=== PATIENT | male | born 1980 | race Caucasian/White ===

== ENCOUNTER 2018-04-23 13:01 | Emergency (ER) | payer SELFPAY ==
[~2018-04-23] VITALS: Ht 175.3 cm; Wt 80.9 kg
[~2018-04-23 13:01] MED LIST: AMOXICILLIN/PO500 MG PO; LORTAB 5-325 MG1 TAB; NAPROSYN500 MG PO; NO HOME MEDS; ULTRAM50 M1 PO
[2018-04-23] MEDS ORDERED: AMOX/K CLAV875 M1 PO (13:50)
[2018-04-23 13:58] VITALS: BP 151/91
== END 2018-04-23 13:53 | disposition home or self-care (01) | DRG 605 ==
LOC: ED 13:01
DX: S50.872A Other superficial bite of left forearm, initial encounter (principal); S40.811A Abrasion of right upper arm, initial encounter; S80.812A Abrasion, left lower leg, initial encounter; W58.01XA Bitten by alligator, initial encounter; Y92.838 Other recreation area as the place of occurrence of the external cause; Y93.89 Activity, other specified